=== PATIENT | male | born 1950 | race Caucasian/White ===

== ENCOUNTER → 2017-03-15 | Outpatient (CLI) | payer OTHER, MEDICARE ==
--- NOTE | 2017-03-15 16:30 | RAD ---
Exam: 3 views of the right foot History: History of fifth toe injury Comparison: None available. Findings: The alignment of the tarsal bones grossly appears unremarkable. The alignment of the of the tarsometatarsal joints, metatarsophalangeal joints grossly appears unremarkable. There is minimal displaced fracture of the distal shaft of the proximal phalanx of the fifth toe. 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 Impression: Minimal displaced fracture of the distal shaft of the proximal phalanx of the fifth toe.
== END | disposition home or self-care (01) ==
LOC: PMG 15:51
PROVIDERS: ATTEND Family Medicine
DX: S92.531A Displaced fracture of distal phalanx of right lesser toe(s), initial encounter for closed fracture (principal); X58.XXXA Exposure to other specified factors, initial encounter; Y93.89 Activity, other specified; Y92.89 Other specified places as the place of occurrence of the external cause; Y99.8 Other external cause status
CPT/HCPCS: 73630